=== PATIENT | male | born 1960 | race Caucasian/White ===

== ENCOUNTER 2016-11-19 08:27 | Emergency (ER) | payer OTHER ==
--- NOTE | 2016-11-19 08:33 | EDPHY ---
HPI/HX/ROS/PE/MDM Narrative: CHIEF COMPLAINT: Right flank pain HPI: The patient is a 56 y/o male complaining of right flank pain, sudden onset 1 hour ago. The pain is a combination of a sharp stabbing pain and an ache. The pain radiates to his groin, but is most intense in his back. Denies urinary or bowel complaints, history of kidney stones, fever or other pertinent symptoms. REVIEW OF SYSTEMS: Aside from elements discussed in the HPI, a comprehensive 10-point review of systems was reviewed and is negative. 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 ENT:Eyes are normal to inspection. ENT inspection normal. Neck: Normal inspection. Full range of motion. Respiratory:No respiratory distress. Breath sounds normal bilaterally. Cardiovascular: Regular rate and rhythm. Strong peripheral pulses. Normal cap refill. Abdomen:The abdomen is nontender to palpation. There are no peritoneal signs. There are normal bowel sounds. Back: Normal to inspection. No tenderness to palpation. Skin: Normal color. No rash. Warm and dry. Extremities: Normal appearance. Full range of motion. Neuro: Oriented x3. Normal motor function. Normal sensory function. Portions of this note were transcribed by an ED scribe. I personally performed the history, physical exam, and medical decision making; and confirm the accuracy of the information in the transcribed note. ED Course: 0850: Reassessed patient, he is feeling much better after Dilaudid and Zofran. 0941: Spoke with radiologist, he reports the patient has a 4mm stone in his right ureter. 0944: Reassessed patient and discussed imaging findings. He will be provided an outpatient follow up with Dr. Iqbal, urologist, in the next week. Return precautions provided; patient is comfortable with this plan. MDM: Thi sis a healthy male patient who presents with signs and symptoms of a kidney stone, confirmed by CT. There is no evidence of UTI or kidney failure. The patient is pain free after treatment with Diluadid and ketorolac. He is comfortable with treatment plan and we have referred him to Urology. - Data Points Imaging: Discussed imaging studies w/ pail tester Radiologist, I viewed and interpreted images myself Laboratory Results: Laboratory Results 11/19/16 08:40 11/19/16 08:40 11/19/16 11/19/16 08:40 08:40 WBC 12.57 10^3/uL H 10^3/uL (3.80-9.50) RBC 4.89 10^6/uL 10^6/uL (4.40-6.38) Hgb 14.7 g/dL g/dL (13.7-17.5) Hct 41.8 % % (40.0-51.0) MCV 85.5 fL fL (81.5-99.8) MCH 30.1 pg pg (27.9-34.1) MCHC 35.2 g/dL g/dL (32.4-36.7) RDW 13.1 % % (11.5-15.2) Plt Count 265 10^3/uL 10^3/uL (150-400) MPV 9.7 fL fL (8.7-11.7) Neut % (Auto) 69.5 % % (39.3-74.2) Lymph % (Auto) 20.5 % % (15.0-45.0) [place] % (Auto) 7.2 % % (4.5-13.0) Eos % (Auto) 1.7 % % (0.6-7.6) Baso % (Auto) 0.4 % % (0.3-1.7) Nucleat RBC Rel Count 0.0 % % (0.0-0.2) Absolute Neuts (auto) 8.74 10^3/uL H 10^3/uL (1.70-6.50) Absolute Lymphs (auto) 2.58 10^3/uL 10^3/uL (1.00-3.00) Absolute Monos (auto) 0.90 10^3/uL H 10^3/uL (0.30-0.80) Absolute Eos (auto) 0.21 10^3/uL 10^3/uL (0.03-0.40) Absolute Basos (auto) 0.05 10^3/uL 10^3/uL (0.02-0.10) Absolute Nucleated RBC 0.00 10^3/uL 10^3/uL (0-0.01) Immature Gran % 0.7 % % (0.0-1.1) Immature Gran # 0.09 10^3/uL 10^3/uL (0.00-0.10) Sodium 143 mEq/L mEq/L (134-144) Potassium 3.6 mEq/L mEq/L (3.5-5.2) Chloride 106 mEq/L mEq/L (97-110) Carbon Dioxide 20 mEq/l L mEq/l (22-31) Anion Gap 17 mEq/L H mEq/L (8-16) BUN 12 mg/dL mg/dL (7-23) Creatinine 1.2 mg/dL mg/dL (0.7-1.3) Estimated GFR > 60 Glucose 133 mg/dL H mg/dL (70-100) Calcium 10.3 mg/dL mg/dL (8.5-10.4) Medications Given: Discontinued Medications Hydromorphone HCl (Dilaudid) 1 mg IVP EDNOW ONE Stop: 11/19/16 08:36 Last Admin: 11/19/16 08:42 Dose: 1 mg Sodium Chloride (Ns) 1,000 mls @ 0 mls/hr IV ONCE ONE PRN Reason: Wide Open Stop: 11/19/16 08:36 Last Admin: 11/19/16 08:41 Dose: 1,000 mls Ketorolac Tromethamine (Toradol) 30 mg IVP EDNOW ONE Stop: 11/19/16 08:55 Last Admin: 11/19/16 08:57 Dose: 30 mg Ondansetron HCl (Zofran) 4 mg IVP EDNOW ONE Stop: 11/19/16 08:36 Last Admin: 11/19/16 08:42 Dose: 4 mg General Time Seen by Provider: 11/19/16 08:33 Initial Vital Signs: Initial Vital Signs Temperature (C) 36.4 C 11/19/16 08:30 Heart Rate 70 11/19/16 08:30 Respiratory Rate 18 11/19/16 08:30 Blood Pressure 156/101 H 11/19/16 08:30 O2 Sat (%) 100 11/19/16 08:30 O2 Delivery Mode Room Air O2 (L/minute) 2 Allergies/Adverse Reactions: No Known Allergies Allergy (Unverified 11/19/16 08:29) Home Medications: Medication Instructions Recorded Amlodipine Besylate 11/19/16 Atorvastatin Calcium 11/19/16 Ketorolac Tromethamine [Toradol] 10 mg PO Q6H #16 tab 11/19/16 Lisinopril 11/19/16 oxyCODONE/APAP 5/325 [Percocet 1 - 2 tab PO Q4H PRN #20 tab 11/19/16 5/325] Departure - Departure Disposition: Home, Routine, Self-Care Clinical Impression: Kidney stone on right side Condition: Good Instructions: Kidney Stones (ED), How to Strain Your Urine (ED) Additional Instructions: Take Toradol and Percocet as prescribed. Followup with your urologist within one week. Return to the emergency apartment for fever, severe pain, inability to urinate or other concerns. Strain urine to try and catch the kidney stone and bring this to the urology appointment. Referrals: Jose Iqbal MD [Medical Doctor] - As per Instructions Prescriptions: Ketorolac Tromethamine [Toradol] 10 mg PO Q6H #16 tab oxyCODONE/APAP 5/325 [Percocet 5/325] 1 - 2 tab PO Q4H PRN #20 tab PRN Reason: Pain, Severe Report Scribed for: Bebeto Lugo Report Scribed by: Brianna Villanueva Date of Report: 11/19/16 Time of Report: 08:51
[2016-11-19] MEDS: NS 1,000 ML IV ONE (08:41)
[2016-11-19] MEDS: HYDROmorphONE/DILAUDID 1 MG/ML INJ IVP ONE (08:42)
[2016-11-19] MEDS: ONDANSETRON 4 MG/2 ML VIAL IVP ONE (08:42)
[2016-11-19 08:49] LABS: % IMMATURE GRANULYOCYTES 0.7 % (0.0-1.1); ABSOLUTE IMMATURE GRANULOCYTES 0.09 10^3/uL (0.00-0.10); ADD DIFF? NO; ADD MORPH? NO; ADD SCAN? NO; ATYPICAL LYMPHOCYTE FLAG 0 (0-99); FRAGMENT RBC FLAG 0 (0-99); HEMATOCRIT 41.8 % (40.0-51.0); HEMOGLOBIN 14.7 g/dL (13.7-17.5); LEFT SHIFT FLG 0 (0-99); LIPEMIA HEMOLYSIS FLAG 90 (0-99); MEAN CELL HEMOGLOBIN 30.1 pg (27.9-34.1); MEAN CELL HEMOGLOBIN CONCENTR. 35.2 g/dL (32.4-36.7); MEAN CELL VOLUME 85.5 fL (81.5-99.8); MEAN PLATELET VOLUME 9.7 fL (8.7-11.7); PLATELET CLUMPS FLAG 0 (0-99); PLATELET COUNT 265 10^3/uL (150-400); RED BLOOD CELL COUNT 4.89 10^6/uL (4.40-6.38); RED CELL DISTRIBUTION WIDTH 13.1 % (11.5-15.2)
[2016-11-19] MEDS: KETOROLAC 30 MG/1 ML SDV IVP ONE (08:57)
[2016-11-19 09:07] LABS: ANION GAP 17 mEq/L (8-16); CALCIUM 10.3 mg/dL (8.5-10.4); CARBON DIOXIDE 20 mEq/l (22-31); CHLORIDE 106 mEq/L (97-110); CREATININE 1.2 mg/dL (0.7-1.3); GLOMERULAR FILTRATION RATE > 60; GLUCOSE 133 mg/dL (70-100); POTASSIUM 3.6 mEq/L (3.5-5.2); SODIUM 143 mEq/L (134-144)
[2016-11-19 10:20] VITALS: BP 109/60; PULSE 52; RESP 16; TEMP 98.6; O2SAT 98
== END 2016-11-19 10:21 | disposition home or self-care (01) ==
DX: N20.0 Calculus of kidney (principal); I10 Essential (primary) hypertension; Z90.49 Acquired absence of other specified parts of digestive tract
CPT/HCPCS: 96374; J1170; J1885; J2405